=== PATIENT | female | born 1995 | race Caucasian/White ===

== ENCOUNTER → 2023-04-12 | Outpatient (CLI) | payer OTHER ==
--- NOTE | 2023-04-13 10:57 | US ---
EXAMINATION TYPE: US thyroid st tissue head/neck DATE OF EXAM: 04/12/2023 COMPARISON: 12/30/15 CLINICAL INDICATION: Female, 28 years old with history of E04.9NONTOXIC GOITER, UNSPECIFIED E06.3 E6 6.9; Hx of Goiter. Family hx of thyroid cancer. Not currently on thyroid medication GLAND SIZE: Right Lobe: 6.5 x 2.9 x 2.6 cm Overall Parenchyma: heterogenous Left Lobe: 6.4 x 3.2 x 2.5 cm Overall Parenchyma: heterogenous Isthmus Thickness: 1.04 cm NODULES RIGHT: # of nodules measured on right: 0 LEFT: # of nodules measured on left: 1 1. 2.1 X 1.7 x 1.2 cm, lower mid, solid or almost completely solid, hyperechoic nodule, which is wi tena than tall, with ill-defined margins, without echogenic foci. TR 3 Prior size: 1.6 x 1.5 x 1.0 cm ISTHMUS: # of nodules measured in the isthmus: 0 Multiple lymph nodes seen on bilateral sides of the neck IMPRESSION: 1. Enlarging left lobe thyroid nodule appears mildly suspicious. Follow-up exam in one year is recomm ended. 2017 ACR TI-RADS LEVEL: *Highest TI-RADS level nodule reported
== END | disposition home or self-care (01) ==
LOC: RADUSWWP 16:04
PROVIDERS: ATTEND Family Medicine
DX: E04.9 Nontoxic goiter, unspecified (principal); E06.3 Autoimmune thyroiditis; E66.9 Obesity, unspecified; Z80.8 Family history of malignant neoplasm of other organs or systems
CPT/HCPCS: 76536

== ENCOUNTER → 2025-02-14 | Outpatient (CLI) | payer OTHER ==
--- NOTE | 2025-02-14 09:38 | US ---
EXAMINATION TYPE: US abdomen limited DATE OF EXAM: 02/14/2025 COMPARISON: NONE CLINICAL INDICATION: Female, 29 years old with history of R10.11 RIGHT UPPER QUADRANT PAIN; RUQ pain x 3 mo TECHNIQUE: Grayscale and color Doppler imaging of the right upper quadrant was performed. 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 Unremarkable right upper quadrant ultrasound [facility], , 02/14/2025 9:36 AM
== END | disposition home or self-care (01) ==
LOC: RADUSWWP 09:07
PROVIDERS: ATTEND Family Medicine
DX: R10.11 Right upper quadrant pain (principal)
CPT/HCPCS: 76705